=== PATIENT | male | born 1960 | race Hispanic/Latino ===

== ENCOUNTER 2020-09-27 10:53 | Day surgery (SDC) | payer OTHER ==
[2020-09-27] MEDS ORDERED: BETIMOL0.25 % OU (11:31)
[2020-09-27 16:06] VITALS: BP 141/82
== END 2020-09-27 15:50 | DRG 352 ==
LOC: ORM 10:53
PROVIDERS: ATTEND Surgery
PROC: 0YUA4JZ Supplement Bilateral Inguinal Region with Synthetic Substitute, Percutaneous Endoscopic Approach (ICD-10-PCS; principal; 2020-09-27)
PROC: 0VBF4ZZ Excision of Right Spermatic Cord, Percutaneous Endoscopic Approach (ICD-10-PCS; 2020-09-27)
DX: K40.20 Bilateral inguinal hernia, without obstruction or gangrene, not specified as recurrent (principal); D17.6 Benign lipomatous neoplasm of spermatic cord; Z20.822 Contact with and (suspected) exposure to COVID-19
CPT/HCPCS: C1781; J0131; J2710